=== PATIENT | female | born 1960 | race Two or more races ===

== ENCOUNTER 2018-10-26 11:08 | Day surgery (SDC) | payer MEDICAID ==
[~2018-10-26] VITALS: Ht 154.9 cm; Wt 85.0 kg
[~2018-10-26 11:08] MED LIST: ATEN25TA PO; SODIUM CHLORIDE 0.9% 1,000 ML IV ONE
[2018-10-26] MEDS ORDERED: PROPOFOL 1% 20 ML VIAL IVP ONE (11:09)
[2018-10-26] MEDS ORDERED: LIDOCAINE/PF 2% 5 ML VIAL IM ONE (11:09)
[2018-10-26] MEDS: SODIUM CHLORIDE 0.9% 1,000 ML IV ONE (11:57)
== END 2018-10-26 15:40 | disposition home or self-care (01) ==
LOC: SURGERY 11:08
PROVIDERS: ATTEND Student in an Organized Health Care Education/Training Program
DX: D12.4 Benign neoplasm of descending colon (principal); K64.8 Other hemorrhoids; I10 Essential (primary) hypertension; Z79.899 Other long term (current) drug therapy; Z90.710 Acquired absence of both cervix and uterus; E66.3 Overweight; Z68.35 Body mass index [BMI] 35.0-35.9, adult; Z90.721 Acquired absence of ovaries, unilateral; Z98.890 Other specified postprocedural states
CPT/HCPCS: 45380; 88305; C1769; J2704; J3490; J7030

== ENCOUNTER 2018-11-16 11:19 | Day surgery (SDC) | payer MEDICAID ==
[~2018-11-16] VITALS: Ht 149.9 cm; Wt 86.8 kg
[~2018-11-16 11:19] MED LIST changes: -SODIUM CHLORIDE 0.9% 1,000 ML IV ONE
[2018-11-16] MEDS ORDERED: SODIUM CHLORIDE 0.9% 1,000 ML IV ONE ×2 (11:30→11:44)
[2018-11-16] MEDS ORDERED: PROPOFOL 1% 20 ML VIAL IVP ONE (12:00)
[2018-11-16] MEDS ORDERED: LIDOCAINE/PF 2% 5 ML SYRINGE IVP ONE (12:00)
[2018-11-16] MEDS ORDERED: FentaNYL CITRATE-PF 100 MCG/2 ML VIAL ONE (12:41)
[2018-11-16] MEDS ORDERED: MIDAZOLAM HCL 5 MG/ML VIAL ONE (12:41)
== END 2018-11-16 15:00 | disposition home or self-care (01) ==
LOC: SURGERY 11:19 → EDUNIT# 13:30 → SURGERY 15:00
PROVIDERS: ATTEND Student in an Organized Health Care Education/Training Program
DX: K29.50 Unspecified chronic gastritis without bleeding (principal); K44.9 Diaphragmatic hernia without obstruction or gangrene; K25.9 Gastric ulcer, unspecified as acute or chronic, without hemorrhage or perforation; K29.80 Duodenitis without bleeding; K31.89 Other diseases of stomach and duodenum; I10 Essential (primary) hypertension; E66.9 Obesity, unspecified; Z88.6 Allergy status to analgesic agent; Z79.899 Other long term (current) drug therapy; Z90.710 Acquired absence of both cervix and uterus; Z98.890 Other specified postprocedural states
CPT/HCPCS: 43239; 88305; 88312; 88313; C1769; J2704; J3490; J7030; J2250; J3010